=== PATIENT | male | born 1970 | race Caucasian/White ===

== ENCOUNTER 2019-12-04 09:52 | Emergency (ER) | payer SELFPAY ==
[2019-12-04 10:11] VITALS: TEMP 98.2; O2SAT 96
[2019-12-04] MEDS ORDERED: KETOROLAC TROMETHAMINE INJ 30 MG/ML VIAL IM ONE (10:40)
[2019-12-04] MEDS ORDERED: HYDROcodone 7.5MG/APAP 325MG 1 EA TAB PO ONE (10:40)
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
[2019-12-04 12:43] VITALS: BP 126/89
== END 2019-12-04 12:40 | disposition home or self-care (01) ==
LOC: ER 09:52
DX: S39.012A Strain of muscle, fascia and tendon of lower back, initial encounter (principal); M51.36 Other intervertebral disc degeneration, lumbar region; M87.9 Osteonecrosis, unspecified; I10 Essential (primary) hypertension; X50.1XXA Overexertion from prolonged static or awkward postures, initial encounter; V94.89XA Other water transport accident, initial encounter; Y92.9 Unspecified place or not applicable
CPT/HCPCS: 36415; 72131; 73502; 74019; 74176; 80053; 81001; 82150; 82550; 82553; 83690; 83735; 84484; 85025; 85610; 85730; J1885